=== PATIENT | female | born 1990 | race Caucasian/White ===

== ENCOUNTER 2019-05-09 19:00 | Emergency (ER) | payer SELFPAY ==
[~2019-05-09 19:00] MED LIST: CLIN300C99 PO; OXYC-865 PO
--- NOTE | 2019-05-09 19:03 | ER Report ---
History and Physical Time Seen By MD: 19:00 HPI/ROS CHIEF COMPLAINT: Left flank, left upper quadrant pain HISTORY OF PRESENT ILLNESS: 28-year-old female presents with one week of left upper quadrant and left flank pain. She notes the pain is worse with eating. She's been vomiting for the last 24 hours, unable to keep anything down. She was trying to take some Pepcid and Zantac without improvement. He denies previous abdominal surgery. She notes she thought she might have urinary tract symptoms beginning for 5 days ago. She has not sought treatment. She notes no fevers, but does note some chills. She states she doesn't have menstrual periods anymore. Patient notes that she's been having constipation for several days. She is status post childbirth times one REVIEW OF SYSTEMS: Respiratory: No cough, no dyspnea. Cardiovascular: No chest pain, no palpitations. Gastrointestinal: As above Musculoskeletal: As above Allergies: Coded Allergies: Penicillins (Verified Allergy, Intermediate, vomiting , 05/09/19) amoxicillin (Verified Allergy, Intermediate, vomiting, 05/09/19) Home Meds Active Scripts Ketorolac Tromethamine (KETOROLAC TROMETHAMINE) 10 Mg Tab, 10 MG PO Q6H PRN for PAIN, #10 TAB Prov:LOYDA YO DO 05/09/19 Ondansetron 4 Mg Odt (ONDANSETRON 4 MG ODT) 4 Mg Tab.rapdis, 4 MG PO Q6H PRN for NAUSEA/VOMITING, #10 TAB Prov:LOYDA YO DO 05/09/19 Reported Medications Bupropion Hcl (WELLBUTRIN XL) 150 Mg Tab.er.24h, 150 MG PO QDAY, TAB 05/09/19 Clonazepam (KLONOPIN) 0.5 Mg Tablet, 0.5 MG PO BID, #10 TAB 05/09/19 Amphet Asp/Amphet/D-Amphet (ADDERALL 20 MG TABLET) 20 Mg Tablet, 20 MG PO QDAY 05/09/19 Amphet Asp/Amphet/D-Amphet (ADDERALL XR 20 MG CAPSULE) 20 Mg Cap.er.24h, 20 MG PO QDAY 05/09/19 Discontinued Scripts Oxycodone Hcl/Acetaminophen (PERCOCET 5-325 MG TABLET) 1 Each Tablet, 1 EACH PO Q4-6H PRN for PAIN, #10 Prov:LOYDA YO DO 10/03/17 Clindamycin Hcl (CLINDAMYCIN HCL) 300 Mg Capsule, 300 MG PO TID for infection, #30 CAPSULE TAKE 1 CAPSULE EVERY SIX HOURS Prov:LOYDA YO DO 10/03/17 Oxycodone Hcl/Acetaminophen (PERCOCET 5-325 MG TABLET) 1 Each Tablet, 1 EACH PO Q4-6H PRN for PAIN, #10 Prov:LOYDA YO DO 10/03/17 Past Medical/Surgical History Childbirth, toothache Reviewed Nurses Notes: Yes Old Medical Records Reviewed: Yes Hx Substance Use Disorder: No Hx Alcohol Use: No Constitutional Vital Sign - Last 24 Hours 05/09/19 05/09/19 19:06 20:13 Temp 98.0 Pulse 88 66 Resp 18 18 B/P (MAP) 136/89 129/80 (96) Pulse Ox 94 95 O2 Delivery Room Air Room Air Intake and Output 05/09/19 05/09/19 05/10/19 15:02 23:02 07:02 Intake Total 1000 ml Balance 1000 ml Physical Exam General Appearance: The patient is alert, has no immediate need for airway protection and no current signs of toxicity. Vital signs stable, afebrile, pulse ox normal Eyes: Pupils equal and round no injection. Eyes appear per proptotic,? Graves' disease, we'll check TSH Respiratory: Chest is non tender, lungs are clear to auscultation. Cardiac: regular rate and rhythm Gastrointestinal: Abdomen is soft, Mild left upper quadrant tenderness, no r ebound or guarding, no masses, bowel sounds normal. No CVA tenderness Musculoskeletal: Neck: Neck is supple and non tender. Extremities have full range of motion and are non tender. Skin: No rashes or lesions. DIFFERENTIAL DIAGNOSIS: After history and physical exam differential diagnosis was considered for abdominal pain including but not limited to appendicitis, cholecystitis, gastritis and urinary tract infection. Medical Decision Making Data Points Result Diagram: 05/09/19190905/09/191909 Laboratory Hematology Test 05/09/19 19:00 05/09/19 19:10 Urine Color Yellow Urine Clarity Clear Urine pH 7.0 pH (4.8-9.5) Urine Specific [place] 1.010 Urine Protein Negative mg/dL (NEGATIVE) Urine Glucose (UA) Negative mg/dL (NEGATIVE) Urine Ketones Negative mg/dL (NEGATIVE) Urine Blood Negative (NEGATIVE) Urine Nitrite Negative (NEGATIVE) Urine Bilirubin Negative (NEGATIVE) Urine Urobilinogen Negative mg/dL (0.2-1.9) Urine Leukocyte Esterase Negative (NEGATIVE) Urine RBC <1 /HPF (0-2/HPF) Urine WBC 1 /HPF (0-5/HPF) Urine Squamous Epithelial Cells Many /LPF (</=FEW) Urine Bacteria Few /HPF (NONE-FEW) Urine Mucus Few /HPF (NONE-FEW) Urine HCG, Qualitative Negative (NEGATIVE) Red Blood Count 4.85 M/uL (4.17-5.56) Mean Corpuscular Volume 90.0 fL (80.0-96.0) Mean Corpuscular Hemoglobin 31.7 pg (26.0-33.0) Mean Corpuscular Hemoglobin Concent 35.2 g/dL (32.0-36.0) Red Cell Distribution Width 12.8 % (11.5-14.5) Mean Platelet Volume 8.9 fL (7.2-11.1) Neutrophils (%) (Auto) 53.9 % (39.4-72.5) Lymphocytes (%) (Auto) 33.4 % (17.6-49.6) Monocytes (%) (Auto) 7.7 % (4.1-12.4) Eosinophils (%) (Auto) 3.9 % (0.4-6.7) Basophils (%) (Auto) 1.1 % (0.3-1.4) Nucleated RBC Relative Count (auto) 0.0 /100WBC Neutrophils # (Auto) 6.1 K/uL (2.0-7.4) Lymphocytes # (Auto) 3.8 K/uL (1.3-3.6) Monocytes # (Auto) 0.9 K/uL (0.3-1.0) Eosinophils # (Auto) 0.4 K/uL (0.0-0.5) Basophils # (Auto) 0.1 K/uL (0.0-0.1) Nucleated RBC Absolute Count (auto) 0.00 K/uL Sodium Level 141 mmol/L (137-145) Potassium Level 3.6 mmol/L (3.5-5.0) Chloride Level 105 mmol/L (98-107) Carbon Dioxide Level 24 mmol/L (22-31) Blood Urea Nitrogen 9 mg/dl (7-18) Creatinine 0.80 mg/dl (0.52-1.04) Glomerular Filtration Rate Calc > 60.0 Random Glucose 116 mg/dl (75-110) Calcium Level 9.3 mg/dl (8.4-10.2) Total Bilirubin 0.4 mg/dl (0.2-1.3) Aspartate Amino Transf (AST/SGOT) 19 U/L (0-35) Alanine Aminotransferase (ALT/SGPT) 27 U/L (0-56) Alkaline Phosphatase 56 U/L (0-126) Total Protein 6.9 g/dl (6.3-8.2) Albumin 4.2 g/dl (3.5-5.0) Amylase Level 96 U/L (0-110) Lipase 123 U/L (23-300) Chemistry Test 05/09/19 19:00 05/09/19 19:10 Urine Color Yellow Urine Clarity Clear Urine pH 7.0 pH (4.8-9.5) Urine Specific Al[place] 1.010 Urine Protein Negative mg/dL (NEGATIVE) Urine Glucose (UA) Negative mg/dL (NEGATIVE) Urine Ketones Negative mg/dL (NEGATIVE) Urine Blood Negative (NEGATIVE) Urine Nitrite Negative (NEGATIVE) Urine Bilirubin Negative (NEGATIVE) Urine Urobilinogen Negative mg/dL (0.2-1.9) Urine Leukocyte Esterase Negative (NEGATIVE) Urine RBC <1 /HPF (0-2/HPF) Urine WBC 1 /HPF (0-5/HPF) Urine Squamous Epithelial Cells Many /LPF (</=FEW) Urine Bacteria Few /HPF (NONE-FEW) Urine Mucus Few /HPF (NONE-FEW) Urine HCG, Qualitative Negative (NEGATIVE) White Blood Count 11.3 k/uL (4.5-11.0) Red Blood Count 4.85 M/uL (4.17-5.56) Hemoglobin 15.4 g/dL (12.0-16.0) Hematocrit 43.7 % (34.0-47.0) Mean Corpuscular Volume 90.0 fL (80.0-96.0) Mean Corpuscular Hemoglobin 31.7 pg (26.0-33.0) Mean Corpuscular Hemoglobin Concent 35.2 g/dL (32.0-36.0) Red Cell Distribution Width 12.8 % (11.5-14.5) Platelet Count 264 K/uL (150-450) Mean Platelet Volume 8.9 fL (7.2-11.1) Neutrophils (%) (Auto) 53.9 % (39.4-72.5) Lymphocytes (%) (Auto) 33.4 % (17.6-49.6) Monocytes (%) (Auto) 7.7 % (4.1-12.4) Eosinophils (%) (Auto) 3.9 % (0.4-6.7) Basophils (%) (Auto) 1.1 % (0.3-1.4) Nucleated RBC Relative Count (auto) 0.0 /100WBC Neutrophils # (Auto) 6.1 K/uL (2.0-7.4) Lymphocytes # (Auto) 3.8 K/uL (1.3-3.6) Monocytes # (Auto) 0.9 K/uL (0.3-1.0) Eosinophils # (Auto) 0.4 K/uL (0.0-0.5) Basophils # (Auto) 0.1 K/uL (0.0-0.1) Nucleated RBC Absolute Count (auto) 0.00 K/uL Glomerular Filtration Rate Calc > 60.0 Calcium Level 9.3 mg/dl (8.4-10.2) Total Bilirubin 0.4 mg/dl (0.2-1.3) Aspartate Amino Transf (AST/SGOT) 19 U/L (0-35) Alanine Aminotransferase (ALT/SGPT) 27 U/L (0-56) Alkaline Phosphatase 56 U/L (0-126) Total Protein 6.9 g/dl (6.3-8.2) Albumin 4.2 g/dl (3.5-5.0) Amylase Level 96 U/L (0-110) Lipase 123 U/L (23-300) Urinalysis Test 05/09/19 19:00 Urine Color Yellow Urine Clarity Clear Urine pH 7.0 pH (4.8-9.5) Urine Specific [place] 1.010 Urine Protein Negative mg/dL (NEGATIVE) Urine Glucose (UA) Negative mg/dL (NEGATIVE) Urine Ketones Negative mg/dL (NEGATIVE) Urine Blood Negative (NEGATIVE) Urine Nitrite Negative (NEGATIVE) Urine Bilirubin Negative (NEGATIVE) Urine Urobilinogen Negative mg/dL (0.2-1.9) Urine Leukocyte Esterase Negative (NEGATIVE) Urine RBC <1 /HPF (0-2/HPF) Urine WBC 1 /HPF (0-5/HPF) Urine Squamous Epithelial Cells Many /LPF (</=FEW) Urine Bacteria Few /HPF (NONE-FEW) Urine Mucus Few /HPF (NONE-FEW) Urine HCG, Qualitative Negative (NEGATIVE) EKG/Imaging Imaging X-ray: KUB was obtained. I viewed the images myself on the PACS system. My interpretation of the images is: Gross fecal stasis throughout the entire colon, no evidence of obstruction. The radiologist interpretation had no clinically significant variation from this interpretation. ED Course/Re-evaluation Clinical Indication for ER IV: Hydration, IV Access ED Course Patient was admitted to an examination room. H&P was done. The differential diagnoses was considered. Patient was treated with IV fluids, Zofran and Toradol. Diagnostic studies were sent off. All of her diagnostic studies returned relatively unremarkable. A KUB of the abdomen shows gross fecal stasis throughout the entire colon without evidence of obstruction. Patient be discharged home on a conservative treatment plan of Zofran and Toradol orally. She is advised clear liquid diet for 48 hours with MiraLAX 2-3 times a day for 2 days and then daily. She is also given a bottle of magnesium citrate to help her evacuate her colon. She advised to follow-up with primary care if unimproved in 3-5 days. Decision to Disposition Date: May 09, 2019 Decision to Disposition Time: 20:05 Depart Departure Latest Vital Signs Vital Signs Date Time Temp Pulse Resp B/P (MAP) Pulse Ox O2 Delivery O2 Flow Rate FiO2 05/09/19 20:13 66 18 129/80 (96) 95 Room Air 05/09/19 19:06 98.0 Impression: Primary Impression: Intractable left upper quadrant abdominal pain Additional Impression: Constipation Condition: Improved Disposition: HOME OR SELF-CARE Referrals: PERLA MADSEN MD, FARRUKH MD New Scripts Ketorolac Tromethamine (KETOROLAC TROMETHAMINE) 10 Mg Tab 10 MG PO Q6H PRN for PAIN, #10 TAB Prov: LOYDA YO DO 05/09/19 Ondansetron 4 Mg Odt (ONDANSETRON 4 MG ODT) 4 Mg Tab.rapdis 4 MG PO Q6H PRN for NAUSEA/VOMITING, #10 TAB Prov: LOYDA YO DO 05/09/19 Patient Instructions: Clear Liquid Diet (ED), Constipation (ED) Additional Instructions: Follow clear liquid diet for 24-48 hours, then resume a normal diet Take MiraLAX 2-3 times per day for 3 days and then reduce to once daily. If you have loose stools then go to every other day, but continued to take MiraLAX for several months You should also take a bottle of magnesium citrate stimulant laxative to help her bowels evacuated Use Zofran/ondansetron for nausea and vomiting control Use Tylenol for pain relief Take ketorolac for pain relief Follow-up with primary care if unimproved in 3-5 days Problem Qualifiers Additional Impression: Constipation Constipation type: unspecified constipation type Qualified Codes: K59.00 - Constipation, unspecified LOYDA YO DO May 09, 2019 19:03
[2019-05-09] MEDS ORDERED: NS(*) 0.9% 1000 ML BAG 1,000 ML IV ONE (19:05)
[2019-05-09] MEDS ORDERED: KETOROLAC 30 MG/ML VIAL IVP ONE (19:10)
[2019-05-09] MEDS ORDERED: ONDANSETRON 4 MG/2 ML VIAL IVP ONE (19:10)
[2019-05-09] MEDS ORDERED: AMPH20CA15 PO (19:14)
[2019-05-09] MEDS ORDERED: AMPH20TA18 PO (19:14)
[2019-05-09] MEDS ORDERED: CLON0.5T66 PO (19:14)
[2019-05-09] MEDS ORDERED: BUPR-472 PO (19:14)
[2019-05-09 19:25] LABS: PLATELET COUNT, AUTOMATED 264 K/uL (150-450)
[2019-05-09] MEDS ORDERED: ONDA4TAB9 PO (20:11)
[2019-05-09] MEDS ORDERED: KET10 PO (20:11)
[2019-05-09 20:13] VITALS: BP 129/80
[2019-05-09] MEDS ORDERED: MAGNESIUM CITRATE 300 ML BTL PO ONE (20:15)
[2019-05-09] MEDS ORDERED: POLYETHYLENE GLYCOL 17 GM PKT PO ONE (20:15)
[2019-05-09] MEDS ORDERED: KETOROLAC TROM 10 MG TAB TH PO ONE (20:15)
[2019-05-09] MEDS ORDERED: ONDANSETRON 4 MG ODT TH SL ONE (20:15)
--- NOTE | 2019-05-09 20:26 | RADIOLOGY IMAGING REPORT ---
FACILITY: [facility] PATIENT NAME: Hussein Solorzano : 1990 MR: [id number] V: [id number] EXAM DATE: ORDERING PHYSICIAN: LOYDA YO TECHNOLOGIST: Location: [facility] - [place] Patient: Hussein Solorzano : 1990 Visit/Account:[id number] Date of Sevice: 05/09/2019 KUB SINGLE VIEW ABDOMEN INDICATION: Left upper quadrant pain and nausea and vomiting. COMPARISON: None available FINDINGS: Moderate stool seen throughout colon. Bowel gas pattern is nonobstructed nondilated. Abdo albina soft tissues grossly normal without suspicious lucencies or abnormal calcifications. Vascular p hleboliths are seen in the pelvis. IUD is seen in the pelvis. Lung bases are clear. No acute bony abn ormality. IMPRESSION: Unremarkable exam with moderate stool seen throughout colon. Report Dictated By: Sonido Mcnally at 05/09/2019 8:19 PM Report E-Signed By: Sonido Mcnally at 05/09/2019 8:20 PM WSN:[id number]
== END 2019-05-09 20:34 | disposition home or self-care (01) ==
LOC: ER 19:07
DX: K59.00 Constipation, unspecified (principal); R10.12 Left upper quadrant pain
CPT/HCPCS: 74018; 81001; 81025; 82150; 83690; 84443; 85025; 96361; 96374; 99283; J1885; J2405; J7030; S0119; 82040; 82247; 82310; 82374; 82435; 82565; 82947; 84075; 84132; 84155; 84295; 84450; 84460; 84520

== ENCOUNTER → 2019-05-25 | Outpatient (CLI) | payer SELFPAY ==
[~2019-05-25] MED LIST changes: +AMPH20CA15 PO; +AMPH20TA18 PO; +BUPR-472 PO; +CLON0.5T66 PO; +KET10 PO; +ONDA4TAB9 PO
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
== END ==
LOC: CT 15:00
PROVIDERS: ATTEND Family Medicine
DX: S09.90XA Unspecified injury of head, initial encounter (principal); S06.0X0A Concussion without loss of consciousness, initial encounter; M54.2 Cervicalgia
CPT/HCPCS: 70450; 72125